=== PATIENT | female | born 1940 | race Caucasian/White ===

== ENCOUNTER → 2016-10-11 | Outpatient (CLI) | payer OTHER ==
[~2016-10-11] MED LIST: ACET-1256 PO; ALBUAER2 INH; AMLO-110 PO; CALC-393 PO; CHOL100010 PO; COEN400C5 PO; CPR500 PO; CYAN100020 PO; FERR325T PO; FLUT1AER5 INH; HYDR-5688 PO; HYDR25TA4 PO; LEVO25TA PO; LORA10CA2 PO; MELA1TAB5 PO; MOME50SP5; MONT1TAB3 PO; MULT-506 PO; OMEG10007 PO; PANT1TAB48 PO; POTA10CA28 PO; REDCAP2 PO; TRAM-10 PO; VALS-57 PO
[2016-10-11 17:29] LABS: BLOOD UREA NITROGEN 15 mg/dl (7-18); CREATININE 0.75 mg/dl (0.60-1.20); GLUCOSE 93 mg/dl (70-99); POTASSIUM 3.9 mmol/L (3.5-5.1); SODIUM 140 mmol/L (136-145)
[2016-10-11 17:30] LABS: ALT/SGPT 21 U/L (12-78); CALCIUM 9.2 mg/dl (8.5-10.1); CARBON DIOXIDE 28 mmol/L (21-32); CHLORIDE 104 mmol/L (98-107); CHOLESTEROL 252 mg/dl (0-200); TRIGLYCERIDES 227 mg/dl (0-150); VERY LOW DENSITY LIPOPROT CALC 45 mg/dl
[2016-10-11 17:40] LABS: ALKALINE PHOSPHATASE 98 U/L (45-117); AST/SGOT 18 U/L (15-37); CHOLESTEROL/HDL RATIO 4.3; HDL CHOLESTEROL 58 mg/dl; LDL CHOLESTEROL CALCULATED 149 mg/dl
[2016-10-12 06:26] LABS: ESTIMATED AVERAGE GLUCOSE 126 mg/dl; HA1C FLAG Normal (Normal)
--- NOTE | 2016-10-16 13:55 | CODING QUERY MEDICAL NECESSITY ---
SUPPORTING DIAGNOSIS NEEDED A supporting diagnosis is required for the test/procedure performed on this patient in order for us to be reimbursed by the patient's insurance. Please provide a supporting diagnosis for the following test/procedure listed below next to the test name along with your signature. *If there is no additional diagnosis for this patient that would support the following test/procedure please document that below next to the test/procedure. Test(s)/Procedure(s) that require a supporting diagnosis: * GLYCATED HEMOGLOBIN DIAGNOSIS: * DOS: 10/11/16 Provider Signature: Date: Thank you Tianna Contreras Health Information Management Once completed, please kindly fax back to [phone] For questions please call [phone]
== END | disposition home or self-care (01) ==
LOC: C.LABBC 13:58
PROVIDERS: ATTEND Family Medicine
DX: I10 Essential (primary) hypertension (principal); E03.9 Hypothyroidism, unspecified; R73.03 Prediabetes; E78.5 Hyperlipidemia, unspecified

== ENCOUNTER → 2017-03-08 | Outpatient (CLI) | payer OTHER ==
[~2017-03-08] MED LIST changes: -HYDR-5688 PO
--- NOTE | 2017-03-08 15:37 | DIAGNOSTIC IMAGING REPORT ---
RIGHT LOWER EXTREMITY VENOUS DOPPLER CLINICAL HISTORY: Right lower extremity pain. Previous knee replacement. COMPARISON STUDY: No previous studies for comparison. TECHNIQUE: Sonography of the deep venous system of the right lower extremity was performed. Compression and augmentation were evaluated. FINDINGS: The right common femoral, superficial femoral and popliteal veins were compressible. Augmentation was normal. Flow was shown within the deep calf vessels. IMPRESSION: No evidence of deep venous thrombus within the right lower extremity. Electronically signed by: Luis Antonio Hudson M.D. 03/08/2017 3:35 PM Dictated Date/Time: 03/08/2017 3:35 PM
== END | disposition home or self-care (01) ==
LOC: C.ULTRBC 15:09
PROVIDERS: ATTEND Physician Assistant
DX: M79.604 Pain in right leg (principal)

== ENCOUNTER → 2017-03-14 | Outpatient (CLI) | payer OTHER ==
[~2017-03-14] MED LIST changes: +CHOL1TAB42 PO; +HYDR12.55 PO; +MOME6000 NAE; +POTA1TAB97 PO; +PSYL48.59 PO; +VNTHFA/IN INH
--- NOTE | 2017-03-14 13:47 | DIAGNOSTIC IMAGING REPORT ---
RIGHT ART DOP DUPLEX LWR EXT UNI HISTORY: 76 years Female acute right leg pain COMPARISON: Duplex venous Doppler of same day TECHNIQUE: Multiple real-time sonographic images of the right lower extremity arterial structures were obtained assessing grayscale appearance, color and spectral flow. Segmental pressures of the lower extremities were also obtained. FINDINGS: The common femoral, profunda femoris, superficial femoral, popliteal, posterior tibial, anterior tibial, peroneal and dorsalis pedis arteries are patent with normal triphasic waveforms. SEGMENTAL BLOOD PRESSURE: RIGHT: Brachial 115, posterior tibial 127 with index of 1.01, dorsalis pedis 111 with index of 0.88 LEFT: Brachial 126, posterior tibial 109 with index of 0.87, dorsalis pedis 108 with index of 0.86 IMPRESSION: 1. Normal triphasic waveforms are seen within the arteries of the right lower extremity from the thigh to the ankle. 2. Mildly decreased ankle-brachial brachial indices as above. The above report was generated using voice recognition software. It may contain grammatical, syntax or spelling errors. Electronically signed by: Artem Dubon M.D. 03/14/2017 1:45 PM Dictated Date/Time: 03/14/2017 1:38 PM
== END | disposition home or self-care (01) ==
LOC: C.ULTR 12:55
PROVIDERS: ATTEND Physician Assistant
DX: M79.604 Pain in right leg (principal)

== ENCOUNTER → 2017-03-21 | Outpatient (CLI) | payer OTHER ==
--- NOTE | 2017-03-21 15:11 | DIAGNOSTIC IMAGING REPORT ---
RIGHT KNEE 3 VIEWS CLINICAL HISTORY: 76 years-old Female presenting with F/U POST RIGHT TKA Right. TECHNIQUE: Bilateral standing views of the knees and crosstable lateral and sunrise views of the right knee were obtained. COMPARISON: 10/01/2015. FINDINGS: Bilateral total knee arthroplasties. Patellar resurfacing of the right patella noted. Knee joints congruent. No joint space loss. No hardware complication. No fracture or malalignment. Small knee joint effusion on the right suspected. Soft tissues otherwise normal. IMPRESSION: Expected appearance of the total knee arthroplasties with right patellar resurfacing. Small knee joint effusion on the right may be present. Electronically signed by: Timothy Horne M.D. 03/21/2017 3:10 PM Dictated Date/Time: 03/21/2017 3:07 PM
--- NOTE | 2017-03-21 16:16 | DIAGNOSTIC IMAGING REPORT ---
PELVIS BILATERAL HIP 2 CLINICAL HISTORY: 76 years-old Female presenting with bilateral hip pain resulting from favoring the right knee status post total knee arthroplasty. TECHNIQUE: Single frontal view of the pelvis and bilateral frog-leg lateral views of the hips were obtained. COMPARISON: None. FINDINGS: Hip joints congruent. No acute fracture or malalignment. No significant degenerative change. Mild degenerative changes of the pubic symphysis. Degenerative changes of the lower lumbar spine. Sacroiliac joints normal. Few pelvic phleboliths noted. Normal bowel gas pattern. IMPRESSION: No acute osseous injury of the hips or pelvis. Electronically signed by: Timothy Horne M.D. 03/21/2017 4:14 PM Dictated Date/Time: 03/21/2017 4:13 PM
== END | disposition home or self-care (01) ==
LOC: C.RDSM 15:42
PROVIDERS: ATTEND Physician Assistant
DX: M79.604 Pain in right leg (principal); Z96.653 Presence of artificial knee joint, bilateral

== ENCOUNTER → 2017-05-23 | Outpatient (CLI) | payer OTHER ==
--- NOTE | 2017-05-23 13:42 | DIAGNOSTIC IMAGING REPORT ---
LUMBAR SPINE MIN 4 VIEWS CLINICAL HISTORY: 76 years-old Female presenting with LOW BACK PAIN/MUSCLE SPASMS. TECHNIQUE: Frontal, bilateral oblique, lateral, and coned in lateral views of lumbar spine were obtained. COMPARISON: None. FINDINGS: Mild dextrocurvature of the lumbar spine. Straightening of normal lumbar lordosis. Vertebral body heights and alignment maintained. Intervertebral disc height loss most severely at L4-5 and to a lesser extent at L5-S1, where there is vacuum disc phenomenon. Endplate sclerosis noted at the superior endplate of L3 as well as at L3-4 and L5-S1. The endplates of L4-5 appear somewhat irregular and eroded, degenerative changes not excluded. Anterior osteophytosis noted in the lower thoracic region. Osseous neural foraminal narrowing suggested at L4-5 and to a greater degree at L5-S1. Positioning of bilateral oblique views is suboptimal limiting assessment. IMPRESSION: Multilevel degenerative changes most severe in the lower lumbar spine with associated osseous neural foraminal narrowing most severe at L5-S1. Disc height loss with possible erosive changes of the endplates of L4-5. This could be degenerative in etiology, although correlate clinically to exclude infectious symptoms. Electronically signed by: Timothy Horne M.D. 05/23/2017 1:41 PM Dictated Date/Time: 05/23/2017 1:38 PM
== END | disposition home or self-care (01) ==
LOC: C.RDSM 13:13
PROVIDERS: ATTEND Physician Assistant
DX: G62.9 Polyneuropathy, unspecified (principal); M54.5 Low back pain; M46.1 Sacroiliitis, not elsewhere classified; M51.36 Other intervertebral disc degeneration, lumbar region; M48.07 Spinal stenosis, lumbosacral region

== ENCOUNTER → 2017-06-04 | Outpatient (CLI) | payer OTHER | END | disposition home or self-care (01) | LOC: C.MAMM 13:53 | PROVIDERS: ATTEND Internal Medicine Rheumatology | DX: M81.0 Age-related osteoporosis without current pathological fracture (principal); E83.50 Unspecified disorder of calcium metabolism; N25.81 Secondary hyperparathyroidism of renal origin; M85.89 Other specified disorders of bone density and structure, multiple sites ==

== ENCOUNTER → 2017-06-21 | Day surgery (SDC) | payer OTHER ==
[2017-06-06 13:38] VITALS: Ht 162.6 cm; Wt 94.5 kg
[~2017-06-21] VITALS: Ht 162.6 cm; Wt 94.5 kg
[~2017-06-21] MED LIST changes: -ALBUAER2 INH; -CHOL100010 PO; -CPR500 PO; -CYAN100020 PO; +FERR1TAB62 PO; -FERR325T PO; -HYDR25TA4 PO; +IOPAMIDOL INJ 61% 15 ML VIAL ONE; +LIDOCAINE HCL 1% MPF 5 ML VIAL ONE; -MOME50SP5; -OMEG10007 PO; -POTA10CA28 PO; +SODIUM CHLORIDE 0.9% INJ 10 ML VIAL ONE
--- NOTE | 2017-06-21 14:52 | History & Physical Bridge - SC ---
H&P Re-Evaluation Bridge Note: I have examined the patient, reviewed the History & Physical and in the interval since the performance of the History & Physical I have noted the following changes of clinical significance: No changes noted
[2017-06-21 15:22] VITALS: BP 135/82; PULSE 78; TEMP 36.8; O2SAT 98
--- NOTE | 2017-06-21 15:28 | Discharge Instructions ---
Discharge Instructions Date of Service Jun 21, 2017. Visit Reason for Visit: Lumbar Radiculopathy Discharge Discharge Diagnosis / Problem: right leg pain Discharge Goals Goal(s): Decrease discomfort, Improve function Medications Stopped Medications Name(s): no NSAIDS, pt states she doesn't take. Activity Recommendations Activity Limitations: resume your previous activity Anesthesia . Post Anesthesia Instructions: If you have had General Anesthesia or IV Sedation: * Do not drive today. * Resume driving when surgeon permits. * Do not make important decisions or sign legal documents today. * Call surgeon for: 1. Temperature elevations greater than 101 degrees F. 2. Uncontrollable pain. 3. Excessive bleeding. 4. Persistent nausea and vomiting. 5. Medication intolerance (nausea, vomiting or rash). * For nausea and vomiting use only clear liquids such as: tea, soda, bouillon until nausea subsides, then gradually increase diet as tolerated. * If you have any concerns or questions, call your surgeon's office. If physician is unavailable and it is an emergency, call 911 or go to the nearest emergency room. . Diet Recommendations Recommended Home Diet: resume previous diet Procedures Procedures Performed: LUMBAR EPIDURAL STEROID INJECTION Pending Studies Studies pending at discharge: no Medical Emergencies . Who to Call and When: Medical Emergencies: If at any time you feel your situation is an emergency, please call 911 immediately. . Non-Emergent Contact Non-Emergency issues call your: Specialist . . "Provider Documentation" section prepared by Anthony Koch. .
--- NOTE | 2017-06-21 16:15 | OPERATIVE REPORT ---
DATE OF OPERATION: 06/21/2017 PREOPERATIVE DIAGNOSIS: Lumbar spinal stenosis with a right L5 radiculopathy. POSTOPERATIVE DIAGNOSIS: Same. PROCEDURE: Right paramedian L5-S1 intralaminar epidural steroid injection under fluoroscopic guidance. INDICATIONS: The patient is a 76-year-old white female who had an EMG study, which showed suspected potential radiculopathy versus focal motor neuropathy. X-rays revealed significant foraminal stenosis. She presents today for an epidural injection to try to provide her with some relief of her ongoing right lower extremity weakness and pain. PHYSICAL EXAMINATION: GENERAL: Pleasant female seated comfortably. MUSCULOSKELETAL: Lumbar paraspinal muscles were palpated. They were nontender. She had no issues with forward flexion or extension. She had normal lower extremity strength. Sensation was decreased throughout the right lower extremity compared to left. Negative seated straight leg raises. CONSENT: Verbal and written consent was obtained from the patient. Risks and benefits were reviewed. Risks include, but are not limited to epidural abscess, epidural hematoma, allergic reaction, and dural puncture. The patient wishes to proceed. DESCRIPTION OF PROCEDURE: The patient was taken back to the special procedures room of the [facility], where she was maintained in a prone position. Backside was cleansed with Betadine x3 and a dry sterile dressing was applied. Fluoroscope was used to identify the L5-S1 intralaminar space, which was quite narrowed. Overlying skin was anesthetized with 4 mL of lidocaine 1% with a 25-gauge 1-1/2 inch needle. A 22-gauge 3-1/2 inch Tuohy needle was then directed down towards the intralaminar space. It was advanced under lateral fluoroscopic guidance. Loss of resistance was noted at a depth of 7 cm. Isovue-300 contrast 0.5 mL was injected in which demonstrated epidural uptake pattern, which was confirmed with both AP and lateral views. She then underwent injection after negative aspiration of 40 mg of Depo-Medrol and 4 mL of preservative free sodium chloride. Injection was well tolerated and reproduced a familiar transient pain down the right proximal buttocks area. DISPOSITION: 1. The patient was taken out into the discharge recovery area, where she will be discharged home once discharge criteria have been met. 2. Follow up in the [facility] office in 2-4 weeks. I attest to the content of the Intraoperative Record and any orders documented therein. Any exception s are noted below.
== END | disposition home or self-care (01) ==
LOC: X.SURG 13:52
PROVIDERS: ATTEND Physical Medicine & Rehabilitation
DX: M48.061 Spinal stenosis, lumbar region without neurogenic claudication (principal); M54.16 Radiculopathy, lumbar region

== ENCOUNTER 2017-08-01 12:31 | Observation (INO) | payer OTHER ==
[~2017-08-01] VITALS: Ht 162.6 cm; Wt 94.7 kg
[~2017-08-01 12:31] MED LIST changes: +GABA-113 PO; -IOPAMIDOL INJ 61% 15 ML VIAL ONE; -LIDOCAINE HCL 1% MPF 5 ML VIAL ONE; -SODIUM CHLORIDE 0.9% INJ 10 ML VIAL ONE
[2017-08-01] MEDS ORDERED: ASPIRIN 81 MG CHEW PO STA (12:48)
[2017-08-01 13:01] LABS: BASO % 1.8 %; BASO ABS # 0.08 K/uL (0-0.2); COMPLETE YES; EOS % 2.5 %; HEMATOCRIT 32.9 % (37-47); IG% 0.5 %; LYMPH % 28.8 %; LYMPH ABS # 1.28 K/uL (1.2-3.4); MEAN CELL VOLUME 90.4 fL (80-100); MEAN CORPUSCULAR HEMOGLOBIN 29.4 pg (25-34); MEAN CORPUSCULAR HGB CONC 32.5 g/dl (32-36); MEAN PLATELET VOLUME 12.7 fL (7.4-10.4); MONO % 6.1 %; NEUT % 60.3 %; PLATELET COUNT 209 K/uL (130-400); RED BLOOD COUNT 3.64 M/uL (4.2-5.4); WHITE BLOOD COUNT 4.44 K/uL (4.8-10.8)
[2017-08-01 13:15] LABS: BLOOD UREA NITROGEN 9 mg/dl (7-18); BUN/CREATININE RATIO 12.9 (10-20); CALCIUM 8.9 mg/dl (8.5-10.1); CARBON DIOXIDE 28 mmol/L (21-32); CHLORIDE 101 mmol/L (98-107); CREATININE 0.67 mg/dl (0.60-1.20); GLUCOSE 99 mg/dl (70-99); POTASSIUM 3.9 mmol/L (3.5-5.1); SODIUM 136 mmol/L (136-145)
--- NOTE | 2017-08-01 13:27 | DIAGNOSTIC IMAGING REPORT ---
CHEST ONE VIEW PORTABLE CLINICAL HISTORY: Atypical chest pain COMPARISON STUDY: No previous studies for comparison. FINDINGS: The heart is borderline enlarged. There is a retrocardiac opacity, likely representing a hiatal hernia. There is no failure. There is no focal pulmonary consolidation. Slight interstitial prominence the lung bases, likely secondary to a suboptimal inspiration.[ IMPRESSION: 1. Suspected hiatal hernia 2. No evidence of focal pulmonary consolidation Electronically signed by: Caleb Vann M.D. 08/01/2017 1:26 PM Dictated Date/Time: 08/01/2017 1:25 PM
[2017-08-01 13:40] LABS: PROTHROMBIN TIME (PATIENT) 10.1 SECONDS (9.0-12.0)
[2017-08-01] MEDS ORDERED: ALUMINUM/MAGNESIUM/SIMETH (MAALOX MAX) 30 ML UDC PO PRN (14:45)
[2017-08-01] MEDS ORDERED: ONDANSETRON INJ 2 MG/ML 2 ML VIAL IV PRN (14:45)
[2017-08-01] MEDS ORDERED: MAGNESIUM HYDROXIDE SUSP 30 ML UDC PO PRN (14:45)
[2017-08-01] MEDS ORDERED: POLYETHYLENE (MIRALAX) 17 GM PACK PO PRN (14:45)
[2017-08-01] MEDS ORDERED: FLAX1CAP11 PO (15:08)
[2017-08-01] MEDS ORDERED: CYAN100020 PO (15:08)
[2017-08-01] MEDS ORDERED: ALBUTEROL HFA 8 GM INHALER INH PRN (15:15)
--- NOTE | 2017-08-01 15:20 | History and Physical ---
History & Physical Date & Time of Service: Aug 01, 2017 at 14:57 Chief Complaint: Chest Discomfort Primary Care Physician: Cheryl Brasher M.D. History of Present Illness Source: patient, clinic records, hospital records This is a 76 y/o female with a history of HTN, HLD, PAD, hypothyroidism, mild intermittent asthma, schizoaffective disorder, and GERD who presented to the ED on 08/01 with chest pain. The patient states she has had chronic back pain for the last several months, but in the last few days it has started to radiate to her chest. She describes a chest tightness as well as a pressure-like pain that she is unable to quantify. The patient states that the tightness sometimes radiates up to her neck and down both arms to her fingers. She also complains of dyspnea on exertion which has been getting worse over the last week , causing her to feel generally weak and fatigued. She admits to intermittent nausea and worsening dizziness, especially with activity. She sometimes has palpitations, but she saw Dr. Pop in April and wore a 24 hour event monitor which did not show any significant arrhythmias. The patient denies fevers, chills, sweats, claudication, cough, wheezing, vomiting, abdominal pain , dysuria, hematuria, urinary retention, paralysis, weakness, numbness and tingling. Past Medical/Surgical History HTN HLD PAD Hypothyroidism Asthma Schizoaffective disorder w/history of psychiatric hospitalization GERD Family History Cancer (colon and stomach) Diabetes mellitus Hypertension Myocardial infarction Stroke Social History Smoking Status: Never Smoker Smokeless Tobacco Use: No Alcohol Use: none Drug Use: none Marital Status: single Housing status: lives alone Occupational Status: retired Multi-Drug Resistant Organisms History of MDRO: No Allergies Coded Allergies: Aspirin (Verified Allergy, Severe, ITCHY NOSE, LABORED BREATHING, IRRITATES STOMACH, 07/27/17) Codeine (Verified Allergy, Severe, SEVERE SHORTNESS OF BREATH,RASH, ) Diclofenac (Verified Allergy, Severe, SHORTNESS OF BREATH, 07/27/17) Fish Allergy (Verified Allergy, Severe, EARS DRAIN, SOB, 07/27/17) Isopropyl Alcohol (Verified Allergy, Severe, SHORTNESS OF BREATH, 07/27/17) Latex2 -Systemic Allergic Response (Verified Allergy, Severe, SOB,FACE BURNING, 07/27/17) Molds & Smuts (Verified Allergy, Severe, MOLDS GRASS-DIFFICULTY BREATHING , NASAL CONGESTION, 06/06/17) NSAIDs (Verified Allergy, Severe, ITCHY NOSE, LABORED BREATHING, IRRITATES STOMAS, 07/27/17) Phenobarbital (Verified Allergy, Severe, SHORTNESS OF BREATH,HEART FELT HOT AND COLD, 07/27/17) Propylene Glycol (Verified Allergy, Severe, SHORTNESS OF BREATH, 07/27/17) Penicillins (Verified Allergy, Intermediate, RASH, 07/27/17) Pineapple (Verified Allergy, Intermediate, LIPS AND FACE RED, LIPS SWELL, 07/27/17) Adhesives (Verified Allergy, Unknown, dias skin, 07/27/17) GLUE Aromatic Oils (Verified Allergy, Unknown, PERFUMES/SMOKE-HEADACHE, BREATHING ISSUES, 07/27/17) SMOKE-HEADACHE,BREATHING ISSUES Chocolate (Verified Allergy, Unknown, SMALL AMTS OK-EARS DRAIN WITH LARGE AMTS, 07/27/17) Tramadol (Verified Allergy, Unknown, cough/wheezing, 07/27/17) Statins (Verified Adverse Reaction, Intermediate, PAIN, MUSCLE ACHES, RASH , 07/27/17) Uncoded Allergies: METAL (Allergy, Unknown, TYPE OF METAL UNKNOWN-PAIN AT SITE,ITCHINESS PER PT, 09/03/15) PER PT-WAS TESTED BY DR FOR METAL ALLERGY-OK FOR TITANIUM BUT NOT SOME OTHER METALS-NICKEL METAL ON WATCH BAND,NECKLACE MADE SKIN IRRITATED PER PT- Home Medications Scheduled Amlodipine (Norvasc), 5 MG PO QAM Calcium Carbonate (Calcium), 1,250 MG PO DAILY Cholecalciferol (Vitamin D), 5,000 UNITS PO QPM Coenzyme Q10 (Ubidecarenone) (Coq10), 400 MG PO QPM Cyanocobalamin (Vitamin B12), 2,000 UNITS PO DAILY Ferrous Sulfate (Ferrous Sulfate), 325 MG PO BID Flaxseed (Linseed) (Flax Seed Oil), 1 CAP PO Q2D Hydrochlorothiazide (Hydrochlorothiazide), 12.5 MG PO DAILY Levothyroxine Sodium (Synthroid), 25 MCG PO QAM Montelukast Sodium (Singulair), 10 MG PO QPM Multivitamin (Multivitamin), 1 TAB PO QPM Pantoprazole (Protonix), 40 MG PO BID Potassium Chloride (K-Tab), 20 MEQ PO BID Psyllium (Metamucil), 1 DOSE PO QPM Red Yeast Rice Extract (Red Yeast Rice), 600 MG PO QPM Valsartan (Valsartan), 80 MG PO QAM Scheduled PRN Acetaminophen (Tylenol), 500 MG PO Q8H PRN for RN Albuterol Hfa (Ventolin Hfa), 2-4 PUFFS INH Q6H PRN for SOB/Wheezing Fluticasone Propionate (Inhala (Flovent Diskus), 1 PUFFS INH BID PRN for Shortness of Breath Melatonin (Kp Melatonin), 1-2 TAB PO HS PRN for Sleep Mometasone Furoate (Nasal) (Mometasone Furoate), 2 SPRAYS JOSSE DAILY PRN for CONGESTION Review of Systems Constitutional: No fever, No chills, No sweats Eyes: No worsening of vision, No eye pain, No diplopia ENT: No hearing loss, No nasal symptoms, No trouble swallowing Respiratory: +GONZALEZ. No cough, No wheezing Cardiovascular: +Chest pain, palpitations. No claudication Abdomen: +Nausea. No pain, No vomiting Musculoskeletal: +Back pain. No muscle pain, No swelling Genitourinary - Female: No dysuria, No urinary retention, No hematuria Neurologic: No paralysis, No weakness, No numbness/tingling Integumentary: No rash, No itch, No color change Physical Exam Vital Signs Date Time Temp Pulse Resp B/P (MAP) Pulse Ox O2 Delivery O2 Flow Rate FiO2 08/01/17 12:41 84 08/01/17 12:36 36.7 77 20 125/79 96 Room Air 08/01/17 12:36 95 Room Air General appearance: +Obese. Well-developed, well-nourished, no apparent distress Head: Normocephalic, atraumatic Eyes: Normal inspection, PERRL, EOMI ENT: Normal ENT inspection, hearing grossly normal, pharynx normal Neck: Supple, no JVD, trachea midline Respiratory/Chest: Lungs clear to auscultation, normal breath sounds, no respiratory distress Cardiovascular: Regular rate & rhythm, no gallop, no murmur Abdomen/GI: +Epigastrium mildly TTP. Normal bowel sounds, soft Extremities/Musculoskeletal: Normal inspection, no calf tenderness, no pedal edema Neurological/Psych: +Delusions. Pt states she just found out this summer that she was in fact at one time, but didn't know before hand due to her previous psych hospitalizations and resultant medications doping her up. She claims she was at one point to [facility]. Otherwise currently has normal mood and oriented x3. Alert, normal mood/affect, oriented x 3 Skin: Normal color, warm/dry, no rash Diagnostics Laboratory Results Results Past 24 Hours Test 08/01/17 12:05 08/01/17 14:42 Range/Units White Blood Count 4.44 4.8-10.8 K/uL Red Blood Count 3.64 4.2-5.4 M/uL Hemoglobin 10.7 12.0-16.0 g/dL Hematocrit 32.9 37-47 % Mean Corpuscular Volume 90.4 80-100 fL Mean Corpuscular Hemoglobin 29.4 25-34 pg Mean Corpuscular Hemoglobin Concent 32.5 32-36 g/dl Platelet Count 209 130-400 K/uL Mean Platelet Volume 12.7 7.4-10.4 fL Neutrophils (%) (Auto) 60.3 % Lymphocytes (%) (Auto) 28.8 % Monocytes (%) (Auto) 6.1 % Eosinophils (%) (Auto) 2.5 % Basophils (%) (Auto) 1.8 % Neutrophils # (Auto) 2.68 1.4-6.5 K/uL Lymphocytes # (Auto) 1.28 1.2-3.4 K/uL Monocytes # (Auto) 0.27 0.11-0.59 K/uL Eosinophils # (Auto) 0.11 0-0.5 K/uL Basophils # (Auto) 0.08 0-0.2 K/uL RDW Standard Deviation 45.2 36.4-46.3 fL RDW Coefficient of Variation 13.6 11.5-14.5 % Immature Granulocyte % (Auto) 0.5 % Immature Granulocyte # (Auto) 0.02 0.00-0.02 K/uL Prothrombin Time 10.1 9.0-12.0 SECONDS Prothromb Time International Ratio 1.0 0.9-1.1 D-Dimer 410 0-500 ug/L FEU Sodium Level 136 136-145 mmol/L Potassium Level 3.9 3.5-5.1 mmol/L Chloride Level 101 98-107 mmol/L Carbon Dioxide Level 28 21-32 mmol/L Anion Gap 6.0 3-11 mmol/L Blood Urea Nitrogen 9 7-18 mg/dl Creatinine 0.67 0.60-1.20 mg/dl Est Creatinine Clear Calc Drug Dose 82.4 ml/min Estimated GFR () 100.4 Estimated GFR (Non- 86.6 BUN/Creatinine Ratio 12.9 10-20 Random Glucose 99 70-99 mg/dl Calcium Level 8.9 8.5-10.1 mg/dl Total Creatine Kinase 29 26-192 U/L Creatine Kinase MB < 0.5 0.5-3.6 ng/ml Creatine Kinase MB Ratio 0-3.0 Troponin I < 0.015 0-0.045 ng/ml Diagnostic Radiology Reviewed the following studies and agree with interpretation as follows: CHEST ONE VIEW PORTABLE CLINICAL HISTORY: Atypical chest pain COMPARISON STUDY: No previous studies for comparison. FINDINGS: The heart is borderline enlarged. There is a retrocardiac opacity, likely representing a hiatal hernia. There is no failure. There is no focal pulmonary consolidation. Slight interstitial prominence the lung bases, likely secondary to a suboptimal inspiration.[ IMPRESSION: 1. Suspected hiatal hernia 2. No evidence of focal pulmonary consolidation EKG Reviewed EKG and agree with interpretation as follows: 74 bpm, NSR with sinus arrhythmia Impression Assessment and Plan 76 y/o female with a history of HTN, HLD, PAD, hypothyroidism, mild intermittent asthma, schizoaffective disorder, and GERD who presented to the ED on 08/01 with chest pain. Pt had took ASA at home prior to EMS arrival. EMS gave nitro x 3 doses. Pt arrived to ED afebrile, VSS. CXR shows suspected hiatal hernia, otherwise no acute disease. EKG no ischemic changes. Cardiac enzymes and d-dimer negative, labs otherwise grossly unremarkable. Chest pain, ACS r/o -Admit to telemetry for observation -Trend cardiac enzymes q8h x 3. First set negative. -Stress echo in am if remains negative -EKG q am and prn chest pain -Fasting lipid panel, last panel 10/13 -Recheck HgbA1c in am, pt has h/o prediabetes HTN, HLD--stable -Continue Norvasc 5 mg PO qd, HCTZ 12.5 mg PO qd and valsartan 80 mg PO qd Hypothyroidism -Check TSH -Continue Synthroid 25 mcg PO qd Mild intermittent asthma--pt does not take any scheduled medications for this, only prn -Continue prn albuterol inhaler, can hold prn Singulair, Claritin, Nasonex and Flovent for now Schizoaffective disorder--no current mood disturbances, but pt reported to me that she just recently found out she had been to [facility] -Consult psych regarding delusions, appreciate recs GERD -Continue Protonix 40 mg PO BID DVT prophylaxis -Enoxaparin 40 mg SC q24h -SAMMI Barraza Code Status -Level I, FULL RESUSCITATION STATUS Level of Care Telemetry Resuscitation Status FULL RESUSCITATION VTE Prophylaxis VTE Risk Assessment Done? Y/N: Yes Risk Level: Moderate Given or contraindicated: Enoxaparin (Lovenox)SQ, T.E.D. Stockings, SCD's
[2017-08-01] MEDS ORDERED: IV FLUIDS COMPLETED PRN (16:15)
[2017-08-01 16:39] VITALS: BP 137/75; PULSE 71; TEMP 36.4; O2SAT 96
--- NOTE | 2017-08-01 17:19 | EMERGENCY ROOM VISIT NOTE ---
History Report prepared by Fabiola: Amando Phillip Under the Supervision of: Dr. Amanuel Roman D.O. First contact with patient: 12:48 Chief Complaint: CHEST PAIN Stated Complaint: CHEST DISCOMFORT Nursing Triage Summary: Pt arrived via ambulance ALS. Pt is a 76yr old female who is from home. Pt states that she started to have chest discomfort yesterday. Pt states the pain originally started in her back and then radiated to her chest. Pt has been having back pain since April. Pt states the chest pain is just a discomfort. Today the PT was becoming SOB with exertion. He chest pain began to radiate to her neck bilat and jaw bilat. Pt then called 911. Pt also took 324 of aspirin before EMS arrived. When EMS arrived the pt was sitting in a chair in her living room. Pt appeared to be in no distress. Pt stated that she was having chest discomfort and pain radiating to her neck and jaw bilat. Pts vitals were stable. Pt was given 3 nitro sublingual which relieved her chest pain. History of Present Illness The patient is a 76 year old female who presents to the Emergency Room with complaints of constant chest pain starting yesterday. The patient states that she has chronic back pain, and she states that the pain has started going into her chest. She notes that the pain resolved with the nitro given prior to arrival. The patient states that the pain feels like a tightness and it is going into her jaw and down both arms. She additionally notes that she is short of breath on exertion and from the pain. The patient states that the pain is not worse with exertion or twisting. The patient has a history of high cholesterol, high blood pressure, and a slow thyroid. She denies any history of heart attacks. Pt denies headache, change in vision, fevers, cough, runny nose, nausea, vomiting, diarrhea, pain with urination, and melena. Source of History: patient Onset: yesterday Position: chest Quality: other (tightness) Timing: constant Modifying Factors (Relieving): other (nitro) Associated Symptoms: + SOB, + back pain Note: Associated symptoms: jaw and arm pain Review of Systems See HPI for pertinent positives & negatives. A total of 10 systems reviewed and were otherwise negative. Past Medical & Surgical Medical Problems: (1) Chest pain (2) Right Knee DJD Social History Smoking Status: Former Smoker Marital Status: single Occupation Status: retired Current/Historical Medications Scheduled Amlodipine (Norvasc), 5 MG PO QAM Calcium Carbonate (Calcium), 1,250 MG PO DAILY Cholecalciferol (Vitamin D), 5,000 UNITS PO QPM Coenzyme Q10 (Ubidecarenone) (Coq10), 400 MG PO QPM Cyanocobalamin (Vitamin B12), 2,000 UNITS PO DAILY Ferrous Sulfate (Ferrous Sulfate), 325 MG PO BID Flaxseed (Linseed) (Flax Seed Oil), 1 CAP PO Q2D Hydrochlorothiazide (Hydrochlorothiazide), 12.5 MG PO DAILY Levothyroxine Sodium (Synthroid), 25 MCG PO QAM Montelukast Sodium (Singulair), 10 MG PO QPM Multivitamin (Multivitamin), 1 TAB PO QPM Pantoprazole (Protonix), 40 MG PO BID Potassium Chloride (K-Tab), 20 MEQ PO BID Psyllium (Metamucil), 1 DOSE PO QPM Red Yeast Rice Extract (Red Yeast Rice), 600 MG PO QPM Valsartan (Valsartan), 80 MG PO QAM Scheduled PRN Acetaminophen (Tylenol), 500 MG PO Q8H PRN for RN Albuterol Hfa (Ventolin Hfa), 2-4 PUFFS INH Q6H PRN for SOB/Wheezing Fluticasone Propionate (Inhala (Flovent Diskus), 1 PUFFS INH BID PRN for Shortness of Breath Melatonin (Kp Melatonin), 1-2 TAB PO HS PRN for Sleep Mometasone Furoate (Nasal) (Mometasone Furoate), 2 SPRAYS JOSSE DAILY PRN for CONGESTION Allergies Coded Allergies: Aspirin (Verified Allergy, Severe, ITCHY NOSE, LABORED BREATHING, IRRITATES STOMACH, 07/27/17) Codeine (Verified Allergy, Severe, SEVERE SHORTNESS OF BREATH,RASH, ) Diclofenac (Verified Allergy, Severe, SHORTNESS OF BREATH, 07/27/17) Fish Allergy (Verified Allergy, Severe, EARS DRAIN, SOB, 07/27/17) Isopropyl Alcohol (Verified Allergy, Severe, SHORTNESS OF BREATH, 07/27/17) Latex2 -Systemic Allergic Response (Verified Allergy, Severe, SOB,FACE BURNING, 07/27/17) Molds & Smuts (Verified Allergy, Severe, MOLDS GRASS-DIFFICULTY BREATHING , NASAL CONGESTION, 06/06/17) NSAIDs (Verified Allergy, Severe, ITCHY NOSE, LABORED BREATHING, IRRITATES STOMAS, 08/01/17) Phenobarbital (Verified Allergy, Severe, SHORTNESS OF BREATH,HEART FELT HOT AND COLD, 08/01/17) Propylene Glycol (Verified Allergy, Severe, SHORTNESS OF BREATH, 08/01/17) Penicillins (Verified Allergy, Intermediate, RASH, 08/01/17) Pineapple (Verified Allergy, Intermediate, LIPS AND FACE RED, LIPS SWELL, 07/27/17) Adhesives (Verified Allergy, Unknown, dias skin, 07/27/17) GLUE Aromatic Oils (Verified Allergy, Unknown, PERFUMES/SMOKE-HEADACHE, BREATHING ISSUES, 07/27/17) SMOKE-HEADACHE,BREATHING ISSUES Chocolate (Verified Allergy, Unknown, SMALL AMTS OK-EARS DRAIN WITH LARGE AMTS, 07/27/17) Tramadol (Verified Allergy, Unknown, cough/wheezing, 07/27/17) Statins (Verified Adverse Reaction, Intermediate, PAIN, MUSCLE ACHES, RASH , 08/01/17) Uncoded Allergies: METAL (Allergy, Unknown, TYPE OF METAL UNKNOWN-PAIN AT SITE,ITCHINESS PER PT, 09/03/15) PER PT-WAS TESTED BY FOR METAL ALLERGY-OK FOR TITANIUM BUT NOT SOME OTHER METALS-NICKEL METAL ON WATCH BAND,NECKLACE MADE SKIN IRRITATED PER PT- Physical Exam Vital Signs Date Time Temp Pulse Resp B/P (MAP) Pulse Ox O2 Delivery O2 Flow Rate FiO2 08/01/17 12:41 84 08/01/17 12:36 36.7 77 20 125/79 96 Room Air 08/01/17 12:36 95 Room Air Physical Exam GENERAL: Sitting up in bed, obese, no distress, non-toxic EYE EXAM: normal conjunctiva. OROPHARYNX: no exudate, no erythema, lips, buccal mucosa, and tongue normal and mucous membranes are moist NECK: supple, no nuchal rigidity, no adenopathy, non-tender LUNGS: Clear to auscultation. Normal chest wall mechanics HEART: no murmurs, S1 normal and S2 normal ABDOMEN: abdomen soft, non-tender, normo-active bowel sounds, no masses, no rebound or guarding. BACK: Back is symmetrical on inspection and there is no deformity, no midline tenderness, no CVA tenderness. SKIN: no rashes and no bruising UPPER EXTREMITIES: Radial pulses are equal bilaterally. Upper extremities are grossly normal. LOWER EXTREMITIES: No pitting edema. Calves are equal bilaterally. NEURO EXAM: Normal sensorium, cranial nerves II-XII grossly intact, normal speech, no gross weakness of arms, no gross weakness of legs. Gross sensation intact. Medical Decision & Procedures ER Provider Diagnostic Interpretation: Radiology results as stated below per my review and the radiologist's interpretation: CHEST ONE VIEW PORTABLE CLINICAL HISTORY: Atypical chest pain COMPARISON STUDY: No previous studies for comparison. FINDINGS: The heart is borderline enlarged. There is a retrocardiac opacity, likely representing a hiatal hernia. There is no failure. There is no focal pulmonary consolidation. Slight interstitial prominence the lung bases, likely secondary to a suboptimal inspiration.[ IMPRESSION: 1. Suspected hiatal hernia 2. No evidence of focal pulmonary consolidation Electronically signed by: Caleb Vann M.D. 08/01/2017 1:26 PM Dictated Date/Time: 08/01/2017 1:25 PM Laboratory Results 08/01/17 12:05 Red Blood Count 3.64, Mean Corpuscular Volume 90.4, Mean Corpuscular Hemoglobin 29.4, Mean Corpuscular Hemoglobin Concent 32.5, Mean Platelet Volume 12.7, Neutrophils (%) (Auto) 60.3, Lymphocytes (%) (Auto) 28.8, Monocytes (%) (Auto) 6.1, Eosinophils (%) (Auto) 2.5, Basophils (%) (Auto) 1.8, Neutrophils # (Auto) 2.68, Lymphocytes # (Auto) 1.28, Monocytes # (Auto) 0.27, Eosinophils # (Auto) 0.11, Basophils # (Auto) 0.08 08/01/17 12:05 Test 08/01/17 12:05 White Blood Count 4.44 K/uL (4.8-10.8) Red Blood Count 3.64 M/uL (4.2-5.4) Hemoglobin 10.7 g/dL (12.0-16.0) Hematocrit 32.9 % (37-47) Mean Corpuscular Volume 90.4 fL (80-100) Mean Corpuscular Hemoglobin 29.4 pg (25-34) Mean Corpuscular Hemoglobin Concent 32.5 g/dl (32-36) Platelet Count 209 K/uL (130-400) Mean Platelet Volume 12.7 fL (7.4-10.4) Neutrophils (%) (Auto) 60.3 % Lymphocytes (%) (Auto) 28.8 % Monocytes (%) (Auto) 6.1 % Eosinophils (%) (Auto) 2.5 % Basophils (%) (Auto) 1.8 % Neutrophils # (Auto) 2.68 K/uL (1.4-6.5) Lymphocytes # (Auto) 1.28 K/uL (1.2-3.4) Monocytes # (Auto) 0.27 K/uL (0.11-0.59) Eosinophils # (Auto) 0.11 K/uL (0-0.5) Basophils # (Auto) 0.08 K/uL (0-0.2) RDW Standard Deviation 45.2 fL (36.4-46.3) RDW Coefficient of Variation 13.6 % (11.5-14.5) Immature Granulocyte % (Auto) 0.5 % Immature Granulocyte # (Auto) 0.02 K/uL (0.00-0.02) Prothrombin Time 10.1 SECONDS (9.0-12.0) Prothromb Time International Ratio 1.0 (0.9-1.1) D-Dimer 410 ug/L FEU (0-500) Anion Gap 6.0 mmol/L (3-11) Est Creatinine Clear Calc Drug Dose 82.4 ml/min Estimated GFR () 100.4 Estimated GFR (Non- 86.6 BUN/Creatinine Ratio 12.9 (10-20) Calcium Level 8.9 mg/dl (8.5-10.1) Total Creatine Kinase 29 U/L (26-192) Creatine Kinase MB < 0.5 ng/ml (0.5-3.6) Creatine Kinase MB Ratio (0-3.0) Troponin I < 0.015 ng/ml (0-0.045) Thyroid Stimulating Hormone (TSH) 1.800 uIu/ml (0.300-4.500) Laboratory results per my review. Medications Administered Medications (Trade) Dose Ordered Sig/Ignacia Route Start Time Stop Time Status Last Admin Dose Admin Aspirin (Aspirin Chew) 324 mg NOW STAT PO 08/01/17 12:48 08/01/17 12:50 DC 08/01/17 13:13 324 MG ECG Indication: chest pain Rate (beats per minute): 74 Rhythm: sinus rhythm Findings: other (Normal axis. Sinus arrhythmia) ED Course ED COURSE: Vital signs were reviewed and showed normal vitals The patients medical record was reviewed The above diagnostic studies were performed and reviewed. ED treatments and interventions as stated above. 1248: The patient was evaluated in room B6. A complete history and physical examination was performed. I ordered Aspirin 324mg PO 1405: I reviewed the patient's case with Dr. Cervantes. He will evaluate the patient for further management. 1408: Upon reevaluation, the patient is doing well.I discussed my findings with the patient and she understands and agrees with the treatment plan. Based on the patients age, coexisting illnesses, exam and lab findings the decision to treat as an inpatient was made. The patient remained stable while under my care. The patient will be evaluated for further management. 1426: I rechecked the patient, and the hospitalist was evaluating her. Medical Decision Differential diagnoses includes but is not limited to acute coronary syndrome, myocardial infarction, pericarditis, pulmonary embolus, aortic dissection, pneumonia, pneumothorax, musculoskeletal, shingles, esophageal. Patient is a 76-year-old female who presents to ER for chest pain associated with shortness of breath arm and jaw pain. Pain was completely resolved with nitroglycerin. CBC shows a mild anemia. BMP was unremarkable. Troponin was negative. TSH was normal. D-dimer was negative. Chest x-ray shows a normal mediastinum. No infiltrate. Patient was completely chest pain-free and was admits internal medicine for exertional chest pain and shortness of breath associated with arm and jaw pain. She did also complain of back pain this does appear to be her typical chronic back pain. Medication Reconcilliation Current Medication List: was personally reviewed by me Blood Pressure Screening Patient's blood pressure: Normal blood pressure Consults Time Called: 1343 Consulting Physician: Dr. Cervantes Returned Call: 1400 I reviewed the patient's case with Dr. Cervantes. He will evaluate the patient for further management. Impression Primary Impression: Precordial chest pain Additional Impression: Dyspnea on exertion Scribe Attestation The scribe's documentation has been prepared under my direction and personally reviewed by me in its entirety. I confirm that the note above accurately reflects all work, treatment, procedures, and medical decision making performed by me. Departure Information Dispostion Being Evaluated By Hospitalist Referrals Cheryl Brasher M.D. (PCP) Patient Instructions My [facility] Problem Qualifiers
[2017-08-01 18:44] VITALS: BP 137/75; PULSE 71; TEMP 36.4; O2SAT 96; Ht 162.6 cm; Wt 94.7 kg
[2017-08-01 19:56] VITALS: BP 119/72; PULSE 92; TEMP 36.4; O2SAT 93
[2017-08-01 20:08] VITALS: O2SAT 93
[2017-08-01] MEDS: ACETAMINOPHEN 325 MG TAB PO PRN (20:08)
[2017-08-01] MEDS: POTASSIUM CHLORIDE 20 MEQ TABCR PO SCH (20:09)
[2017-08-01] MEDS: ENOXAPARIN 40 MG/0.4 ML SYR SC SCH (20:09)
[2017-08-01] MEDS: PANTOprazole SOD 40 MG TAB PO SCH (20:10)
[2017-08-01] MEDS ORDERED: MULTIVITAMIN TAB PO SCH (21:00)
[2017-08-01 23:52] VITALS: BP 128/76; PULSE 76; TEMP 36.4; O2SAT 95
[2017-08-02] VITALS (7 sets, daily range): BP systolic 126–147; BP diastolic 75–85; PULSE 72–85; TEMP 36.4–36.5; O2SAT 92–96
[2017-08-02] MEDS: ACETAMINOPHEN 325 MG TAB PO PRN ×2 (01:25→05:53)
[2017-08-02 04:28] LABS: HEMATOCRIT 30.8 % (37-47); MEAN CELL VOLUME 89.3 fL (80-100); MEAN CORPUSCULAR HGB CONC 32.5 g/dl (32-36); MEAN PLATELET VOLUME 12.5 fL (7.4-10.4); PLATELET COUNT 188 K/uL (130-400); RED BLOOD COUNT 3.45 M/uL (4.2-5.4); WHITE BLOOD COUNT 4.36 K/uL (4.8-10.8)
[2017-08-02 04:52] LABS: BLOOD UREA NITROGEN 13 mg/dl (7-18); CALCIUM 8.2 mg/dl (8.5-10.1); CARBON DIOXIDE 31 mmol/L (21-32); CHLORIDE 104 mmol/L (98-107); CHOLESTEROL 204 mg/dl (0-200); CHOLESTEROL/HDL RATIO 5.4; CKMB/CK RATIO 1.9 (0-3.0); CREATININE 0.64 mg/dl (0.60-1.20); GLUCOSE 103 mg/dl (70-99); HDL CHOLESTEROL 38 mg/dl; LDL CHOLESTEROL CALCULATED 92 mg/dl; POTASSIUM 3.4 mmol/L (3.5-5.1); SODIUM 138 mmol/L (136-145); TRIGLYCERIDES 368 mg/dl (0-150); VERY LOW DENSITY LIPOPROT CALC 74 mg/dl
[2017-08-02] MEDS ORDERED: LEVOTHYROXINE 25 MCG TAB PO SCH (06:30)
[2017-08-02 06:40] LABS: ESTIMATED AVERAGE GLUCOSE 123 mg/dl; HA1C FLAG Normal (Normal)
[2017-08-02] MEDS ORDERED: AMLODIPINE BESYLATE 5 MG TAB PO SCH (09:00)
[2017-08-02] MEDS ORDERED: VALSARTAN 80 MG TAB PO SCH (09:00)
[2017-08-02] MEDS ORDERED: HYDROCHLOROTHIAZIDE 25 MG TAB PO SCH (09:00)
[2017-08-02] MEDS ORDERED: POTASSIUM CHLORIDE 20 MEQ TABCR PO ONE (09:15)
[2017-08-02] MEDS ORDERED: DOBUTamine HCL 12.5 MG/ML 20 ML VIAL ONE (09:15)
[2017-08-02] MEDS ORDERED: METOPROLOL TARTRATE 1 MG/ML VIAL ONE (09:16)
[2017-08-02] MEDS ORDERED: ATROPINE SULFATE 0.1 MG/ML 5ML SYR ONE (09:16)
[2017-08-02] MEDS ORDERED: PERFLUTREN LIPID MICROSPHERE (DEFINITY) IV ONE (09:49)
[2017-08-02] MEDS: PANTOprazole SOD 40 MG TAB PO SCH (10:12)
[2017-08-02] MEDS: POTASSIUM CHLORIDE 20 MEQ TABCR PO SCH (10:12)
[2017-08-02] MEDS ORDERED: CYCLOBENZAPRINE HCL 5 MG TAB PO PRN (11:45)
[2017-08-02] MEDS ORDERED: CYCLOBENZAPRINE HCL 5 MG TAB PO ONE (12:00)
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
[2017-08-02] MEDS ORDERED: RISPERIDONE ODT 0.5MG PO PRN (12:45)
[2017-08-02] MEDS ORDERED: FLX5 PO (13:41)
--- NOTE | 2017-08-02 13:49 | Discharge Instructions ---
Discharge Instructions Date of Service Aug 02, 2017. Admission Reason for Admission: Chest Pain Discharge Discharge Diagnosis / Problem: Musculoskeletal back pain Discharge Goals Goal(s): Decrease discomfort, Improve function, Increase independence, Learn about illness, Diagnostic testing, Therapeutic intervention, Prevent Disease Progression Activity Recommendations Activity Limitations: as noted below Lifting Limitations: gradually increase as tolerated Exercise/Sports Limitations: as tolerated May Resume Sexual Activity: when tolerated Shower/Bathe: no limitations . Instructions / Follow-Up Instructions / Follow-Up An acute cardiac event was ruled out through cardiac monitoring, cardiac enzymes , and stress echocardiogram test. The source of your back pain is likely musculoskeletal. Back pain: Flexeril 5 mg three times daily as needed for muscle pain/spasm You may apply heat or ice (whichever feels best) three to four times a day for no more than 15-20 minutes at a time You may apply [id number] topical pain-relieving cream (such as IcyHot) as needed Drink plenty of fluids Continue to stretch/move throughout the day as tolerated Resume all other regular home medications as prescribed FOLLOW-UPS: Please follow-up with your PCP within 5-7 days Please follow-up with Dr. Koch within the next 1-2 weeks Please follow-up/keep all of your subspecialty appointments Home Care: * If you are having chest pain, call 911 for an ambulance. Do NOT drive yourself to the hospital. * Ask your family members to learn CPR. * Learn to take your own blood pressure and pulse. Keep a record of your results. Ask your doctor when you should seek emergency medical attention. He or she will tell you which blood pressure reading is dangerous. Lifestyle Changes: * Maintain a healthy weight. Get help to lose any extra pounds. * Cut back on salt. * Limit canned, dried, packaged, and fast foods. * Don't add salt to your food. * Season foods with herbs instead of salt when you cook. * Break the smoking habit. Enroll in a stop-smoking program to improve your chances of success. * Limit fatty foods. * Ask your doctor about having your lipid levels checked regularly. * Build up your activity according to your doctor's recommendation. * Ask your doctor when it's okay to resume sexual activity. * Try to manage stress. Follow Up: It is important for you to keep your follow up appointments with your medical provider. Current Hospital Diet Patient's current hospital diet: AHA Diet (Heart Healthy) Discharge Diet Recommended Diet: AHA Diet (Heart Healthy) Pending Studies Studies pending at discharge: no Laboratory Results Hemoglobin A1c Test 08/02/17 04:08 Range/Units Estimated Average Glucose 123 mg/dl Hemoglobin A1c 5.9 H 4.5-5.6 % Lipid Panel Test 08/02/17 04:08 Range/Units Triglycerides Level 368 H 0-150 mg/dl Cholesterol Level 204 H 0-200 mg/dl HDL Cholesterol 38 mg/dl Cholesterol/HDL Ratio 5.4 LDL Cholesterol, Calculated 92 mg/dl Medical Emergencies . Who to Call and When: Medical Emergencies: If at any time you feel your situation is an emergency, please call 911 immediately. Call 911 immediately or go to your nearest Emergency Room if you experience any of the following: Warning Signs and Symptoms of a Heart Attack * Chest pain that is not relieved by medication * Shortness of breath . Non-Emergent Contact Non-Emergency issues call your: Primary Care Provider Call Non-Emergent contact if: your pain is not controlled, your pain is worsening, your pain is unusual for you, your pain is concerning you, you have any medication questions . . "Provider Documentation" section prepared by Laurie Sy. . AMI Core Measures Reason no ASA as I/P: Treatment not indicated Reason no ASA at D/C: Treatment not indicated Reason no statin as I/P: Treatment not tolerated Reason no statin at D/C: Treatment not tolerated VTE Core Measure Inpt VTE Proph given/why not?: Enoxaparin (Lovenox)SQ, T.E.D. Stockings, SCD's
--- NOTE | 2017-08-02 14:03 | Discharge Summary ---
Discharge Summary Date of Service Aug 02, 2017. Discharge Summary Admission Date: Aug 01, 2017 at 14:54 Discharge Date: Aug 02, 2017 Discharge Disposition: Home Principal Diagnosis: Chest pain, likely secondary to musculoskeletal Problems/Secondary Diagnoses: HLD HTN Hypothyroidism Mild intermittent asthma Schizoaffective disorder GERD Procedures: CHEST ONE VIEW PORTABLE CLINICAL HISTORY: Atypical chest pain COMPARISON STUDY: No previous studies for comparison. FINDINGS: The heart is borderline enlarged. There is a retrocardiac opacity, likely representing a hiatal hernia. There is no failure. There is no focal pulmonary consolidation. Slight interstitial prominence the lung bases, likely secondary to a suboptimal inspiration.[ IMPRESSION: 1. Suspected hiatal hernia 2. No evidence of focal pulmonary consolidation Electronically signed by: Caleb Vann M.D. 08/01/2017 1:26 PM Dictated Date/Time: 08/01/2017 1:25 PM The status of this report is Signed. Draft = Not yet reviewed or approved by Radiologist. Signed = Reviewed and approved by Radiologist. Interpretation Summary * Name: SON SOSA Study Date: 08/02/2017 08:08 AM BP: 152/64 mmHg * Patient Location: [facility]\S\N280\S\1 HR: 78 * : 1940 (M/d/yyyy) Gender: Female Height: 64 in * Age: 76 yrs Ethnicity: PA Weight: 209 lb * Ordering Physician: Veronique Kramer * Referring Physician: Moe Pop * Performed By: Gabriela Carrizales RCS * * Reason For Study: Chest Pain * BSA: 2.0 m2 * -- Conclusions -- * Dobutamine Stress Echo: * 1. Negative Dobutamine stress echo for ischemia at 104 % MPHR. * 2. Negative Dobutamine ECG for ischemia at 104 % MPHR. * 3. Appropriate blood pressure response. * 4. No arrhythmia. * 5. No chest pain reported. * 6. Technically difficult study, enhanced with IV Definity. * Echo: * 1. Normal left ventricular size and systolic function. EF 65-70%. No regional wall motion abnormalities. No left ventricular hypertrophy. Type 1 diastolic dysfunction. * 2. Aortic valve sclerosis mild, without significant aortic valvular stenosis. * 3. There is mild mitral regurgitation. * 4. Normal estimated right ventricular systolic pressure; 24 mm Hg. Procedure Details * DOBUTAMINE ECHO, CPT#[id number] * ECHO COLOR FLOW, CPT #[id number] * ECHO DOPPLER, CPT #[id number] * A contrast injection of Definity was performed to improve assessment of LV function. * Contrast was injected into an intravenous site in the left arm. * One vial of Definity ultrasound contrast was diluted in normal saline to a total volume of 10 ml. A total of '2.5' ml of solution was administered during imaging. * Lot # [id number] of Definity utilized for procedure. * Expiration date . * The attending nurse who injected the contrast agent was Hank Larkin RN. Left Ventricle * The left ventricle is normal in size. * There is normal left ventricular wall thickness. * Left ventricular systolic function is normal. * The left ventricular ejection fraction increases normally with stress. The left ventricular end-systolic cavity size reduces post-stress (normal response). The left ventricular wall motion with stress is normal. * Resting wall motion: Normal. Stress wall motion: Appropriate increase in Left ventricular systolic function and decrease in cavity size. No stress induced segmental wall motion abnormalities. * No regional wall motion abnormalities noted. * During stress imaging, images were at times foreshortened and therefore apex was not well visualized. Right Ventricle * The right ventricle is normal in size and function. * The right ventricular systolic function is normal as assessed by tricuspid annular plane systolic excursion (TAPSE) (normal >1.5 cm). Atria * The left atrial size is normal. * Right atrial size is normal. * There is no evidence of atrial septal defect, but resolution does not allow assessment for a patent foramen ovale. Mitral Valve * There is mild mitral annular calcification. * There is no mitral valve stenosis. * There is mild mitral regurgitation. Tricuspid Valve * The tricuspid valve is not well visualized, but is grossly normal. * There is no tricuspid stenosis. * There is trace tricuspid regurgitation. Aortic Valve * The aortic valve is trileaflet. * Aortic valve sclerosis mild, without significant aortic valvular stenosis. * No hemodynamically significant valvular aortic stenosis. * No aortic regurgitation is present. Pulmonic Valve * The pulmonary valve is inadequately visualized, but the Doppler data is adequate for interpretation. * Trace pulmonic valvular regurgitation. Great Vessels * The aortic root is normal size. * Normal pulmonary venous flow pattern. Normal IVC size and inspiratory collapse. Pericardium * There is no pericardial effusion. Stress Parameters * NSR at 63 bpm. * Stress ECG: No ST changes. No arrhythmias. * No arrhythmia were noted with stress. * Rest heart rate was '78' BPM. * Rest blood pressure was '152/64' * Maximum heart rate achieved was 150 bpm. * Maximum heart rate was 104 % of maximum age-predicted heart rate. * Maximum blood pressure was '166/60' * Maximum Dobutamine infusion rate was '30' mcg/kg/min. * Dobutamine infusion was terminated due to achieving target heart rate * A total of 5 mg of IV Metoprolol was administered to reverse Dobutamine- induced tachycardia. * Normal blood pressure response to exercise. Left Ventricular Diastolic Function * Grade I diastolic dysfunction, (abnormal relaxation pattern). Medication Reconciliation New Medications: Cyclobenzaprine HCl (Cyclobenzaprine HCl) 5 Mg Tab 5 MG PO TID PRN for BACK PAIN for 5 Days, #15 TAB Continued Medications: Acetaminophen (Tylenol) 500 Mg Tab 500 MG PO Q8H PRN for RN Albuterol Hfa (Ventolin Hfa) 200 Puffs/65252 Mcg Aers 2-4 PUFFS INH Q6H PRN for SOB/Wheezing Amlodipine (Norvasc) 5 Mg Tab 5 MG PO QAM, TAB Calcium Carbonate (Calcium) 600 Mg Tab 1250 MG PO DAILY TOTAL DOSAGE 1250 Cholecalciferol (Vitamin D) 5,000 Unit Tab 5000 UNITS PO QPM Coenzyme Q10 (Ubidecarenone) (Coq10) 400 Mg Cap 400 MG PO QPM Cyanocobalamin (Vitamin B12) 1,000 Mcg Tab 2000 UNITS PO DAILY Ferrous Sulfate (Ferrous Sulfate) 325 Mg Tab 325 MG PO BID Flaxseed (Linseed) (Flax Seed Oil) 1 Cap Cap 1 CAP PO Q2D Fluticasone Propionate (Inhala (Flovent Diskus) 100 Mcg/Blist Aer 1 PUFFS INH BID PRN for Shortness of Breath Hydrochlorothiazide (Hydrochlorothiazide) 12.5 Mg Tab 12.5 MG PO DAILY Levothyroxine Sodium (Synthroid) 25 Mcg Tab 25 MCG PO QAM, TAB Melatonin (Kp Melatonin) 3 Mg Tab 1-2 TAB PO HS PRN for Sleep Mometasone Furoate (Nasal) (Mometasone Furoate) 50 Mcg/Act Spr 2 SPRAYS JOSSE DAILY PRN for CONGESTION Montelukast Sodium (Singulair) 10 Mg Tab 10 MG PO QPM Multivitamin (Multivitamin) Tab 1 TAB PO QPM, TAB Pantoprazole (Protonix) 40 Mg Tab 40 MG PO BID Potassium Chloride (K-Tab) 20 Meq Tab 20 MEQ PO BID Psyllium (Metamucil) 48.57 % Pow 1 DOSE PO QPM Red Yeast Rice Extract (Red Yeast Rice) 600 Mg Cap 600 MG PO QPM Valsartan (Valsartan) 80 Mg Tab 80 MG PO QAM Discharge Exam Mid- R-sided, just below R shoulder blade, ttp of back region Review of Systems: Constitutional: No fever, No chills, No sweats, No weakness, No fatigue Eyes: No worsening of vision ENT: No hearing loss Respiratory: No cough, No shortness of breath, No dyspnea on exertion, No hemoptysis Cardiovascular: No chest pain, No edema, No palpitations Abdomen: No pain, No nausea, No vomiting, No diarrhea, No constipation Musculoskeletal: + muscle pain, No joint pain, No swelling, No calf pain Genitourinary - Female: No dysuria, No hematuria Neurologic: No weakness, No numbness/tingling Psychiatric: No depression symptoms, No anxiety Endocrine: No fatigue Hematologic / Lymphatic: No abnormal bleeding/bruising Integumentary: No rash, No itch, No new/changing skin lesions Physical Exam: General Appearance: no apparent distress, + obese Eyes: normal inspection, PERRL ENT: hearing grossly normal Neck: supple Respiratory/Chest: lungs clear, no respiratory distress, no accessory muscle use Cardiovascular: regular rate, rhythm Abdomen / GI: normal bowel sounds, non tender, soft Extremities: no calf tenderness, no pedal edema Neurologic/Psychiatric: alert, oriented x 3 Skin: normal color, warm/dry, no rash Hospital Course Admission H&P: This is a 76 y/o female with a history of HTN, HLD, PAD, hypothyroidism, mild intermittent asthma, schizoaffective disorder, and GERD who presented to the ED on 08/01 with chest pain. The patient states she has had chronic back pain for the last several months, but in the last few days it has started to radiate to her chest. She describes a chest tightness as well as a pressure-like pain that she is unable to quantify. The patient states that the tightness sometimes radiates up to her neck and down both arms to her fingers. She also complains of dyspnea on exertion which has been getting worse over the last week , causing her to feel generally weak and fatigued. She admits to intermittent nausea and worsening dizziness, especially with activity. She sometimes has palpitations, but she saw Dr. Pop in April and wore a 24 hour event monitor which did not show any significant arrhythmias. The patient denies fevers, chills, sweats, claudication, cough, wheezing, vomiting, abdominal pain , dysuria, hematuria, urinary retention, paralysis, weakness, numbness and tingling. Physical Exam Vital Signs Date Time Temp Pulse Resp B/P (MAP) Pulse Ox O2 Delivery O2 Flow Rate FiO2 08/01/17 12:41 84 08/01/17 12:36 36.7 77 20 125/79 96 Room Air 08/01/17 12:36 95 Room Air General appearance: +Obese. Well-developed, well-nourished, no apparent distress Head: Normocephalic, atraumatic Eyes: Normal inspection, PERRL, EOMI ENT: Normal ENT inspection, hearing grossly normal, pharynx normal Neck: Supple, no JVD, trachea midline Respiratory/Chest: Lungs clear to auscultation, normal breath sounds, no respiratory distress Cardiovascular: Regular rate & rhythm, no gallop, no murmur Abdomen/GI: +Epigastrium mildly TTP. Normal bowel sounds, soft Extremities/Musculoskeletal: Normal inspection, no calf tenderness, no pedal edema Neurological/Psych: +Delusions. Pt states she just found out this summer that she was in fact at one time, but didn't know before hand due to her previous psych hospitalizations and resultant medications doping her up. She claims she was at one point to [facility]il[facility] [place]. Otherwise currently has normal mood and oriented x3. Alert, normal mood/affect, oriented x 3 Skin: Normal color, warm/dry, no rash Hospital Course: 76 y/o female with a history of HTN, HLD, PAD, hypothyroidism, mild intermittent asthma, schizoaffective disorder, and GERD who presented to the ED on 08/01 with chest pain. Pt had took ASA at home prior to EMS arrival. EMS gave nitro x 3 doses. Pt arrived to ED afebrile, VSS. CXR shows suspected hiatal hernia, otherwise no acute disease. EKG no ischemic changes. Cardiac enzymes and d-dimer negative, labs otherwise grossly unremarkable. Chest pain, likely secondary to musculoskeletal pain, ACS r/o: - Admit to telemetry for observation- no acute events - Trend cardiac enzymes q8h x 3- negative - Stress ECHO- unremarkable for ischemic findings - EKG q am and prn chest pain - HgbA1c- 5.9% - Flexeril 5 mg TID PRN for pain- symptoms improved w/ use Mild hypoK at 3.4: Continue K-tab 20 mEq BID HLD- INTOLERANT TO STATINS PER PATIENT: - Lipid panel reviewed - Encouraged weight loss, exercise, and healthy diet - Continue supplements HTN: Continue Norvasc 5 mg PO qd, HCTZ 12.5 mg PO qd and Valsartan 80 mg PO qd Hypothyroidism- TSH WNL: Continue Synthroid 25 mcg PO qd Mild intermittent asthma: Continue PRN albuterol inhaler, PRN Singulair, Claritin, Nasonex and Flovent Schizoaffective disorder: Consult psych, appreciate recommendations- patient refusing inpatient treatment/medications GERD: Continue Protonix 40 mg PO BID DVT prophylaxis: Enoxaparin 40 mg SC q24h Code Status: Level I, FULL RESUSCITATION STATUS Dispo: Discharge to home I agree with PA assessment and plan and have seen and examined pt myself Resting comfortably in bed No further chest pain Labs reviewed Psych consulted, no active intervention needed Stress test unremarkable Stable for DC home Total Time Spent: Greater than 30 minutes This includes examination of the patient, discharge planning, medication reconciliation, and communication with other providers. Discharge Instructions Please refer to the electronic Patient Visit Report (Discharge Instructions) for additional information. Follow-Up Please follow-up with your PCP within 5-7 days Please follow-up with Dr. Koch in 1-2 weeks Please follow-up/keep all of your subspecialty appointments Additional Copies To Cheryl Brasher M.D.
--- NOTE | 2017-08-02 14:11 | DOBUTAMINE ECHO ---
*NOTICE TO RECEIVING [employer] This information is strictly Confidential and protected under [place] law. [place] law prohibits you from making any further disclosure of this information unless further disclosure is expressly permitted by the written consent of the person to whom it pertains or is authorized by law. A general authorization for the release of medical or other information is not sufficient for this purpose. Hospital accepts no responsibility if the information is made available to any other person, INCLUDING THE PATIENT. Interpretation Summary * Name: SON SOSA Study Date: 08/02/2017 08:08 AM BP: 152/64 mmHg * Patient Location: [facility]\S\N280\S\1 HR: 78 * : 1940 (M/d/yyy) Gender: Female Height: 64 in * Age: 76 yrs Ethnicity: CA Weight: 209 lb * Ordering Physician: Veronique Kramer * Referring Physician: Moe Pop * Performed By: Gabriela Carrizales [facility] * * Reason For Study: Chest Pain * BSA: 2.0 m2 * -- Conclusions -- * Dobutamine Stress Echo: * 1. Negative Dobutamine stress echo for ischemia at 104 % MPHR. * 2. Negative Dobutamine ECG for ischemia at 104 % MPHR. * 3. Appropriate blood pressure response. * 4. No arrhythmia. * 5. No chest pain reported. * 6. Technically difficult study, enhanced with IV Definity. * Echo: * 1. Normal left ventricular size and systolic function. EF 65-70%. No regional wall motion abnormalities. No left ventricular hypertrophy. Type 1 diastolic dysfunction. * 2. Aortic valve sclerosis mild, without significant aortic valvular stenosis. * 3. There is mild mitral regurgitation. * 4. Normal estimated right ventricular systolic pressure; 24 mm Hg. Procedure Details * DOBUTAMINE ECHO, CPT#[id number] * ECHO COLOR FLOW, CPT #[id number] * ECHO DOPPLER, CPT #[id number] * A contrast injection of Definity was performed to improve assessment of LV function. * Contrast was injected into an intravenous site in the left arm. * One vial of Definity ultrasound contrast was diluted in normal saline to a total volume of 10 ml. A total of '2.5' ml of solution was administered during imaging. * Lot # [id number] of Definity utilized for procedure. * Expiration date . * The attending nurse who injected the contrast agent was Hank Larkin RN. Left Ventricle * The left ventricle is normal in size. * There is normal left ventricular wall thickness. * Left ventricular systolic function is normal. * The left ventricular ejection fraction increases normally with stress. The left ventricular end-systolic cavity size reduces post-stress (normal response). The left ventricular wall motion with stress is normal. * Resting wall motion: Normal. Stress wall motion: Appropriate increase in Left ventricular systolic function and decrease in cavity size. No stress induced segmental wall motion abnormalities. * No regional wall motion abnormalities noted. * During stress imaging, images were at times foreshortened and therefore apex was not well visualized. Right Ventricle * The right ventricle is normal in size and function. * The right ventricular systolic function is normal as assessed by tricuspid annular plane systolic excursion (TAPSE) (normal >1.5 cm). Atria * The left atrial size is normal. * Right atrial size is normal. * There is no evidence of atrial septal defect, but resolution does not allow assessment for a patent foramen ovale. Mitral Valve * There is mild mitral annular calcification. * There is no mitral valve stenosis. * There is mild mitral regurgitation. Tricuspid Valve * The tricuspid valve is not well visualized, but is grossly normal. * There is no tricuspid stenosis. * There is trace tricuspid regurgitation. Aortic Valve * The aortic valve is trileaflet. * Aortic valve sclerosis mild, without significant aortic valvular stenosis. * No hemodynamically significant valvular aortic stenosis. * No aortic regurgitation is present. Pulmonic Valve * The pulmonary valve is inadequately visualized, but the Doppler data is adequate for interpretation. * Trace pulmonic valvular regurgitation. Great Vessels * The aortic root is normal size. * Normal pulmonary venous flow pattern. Normal IVC size and inspiratory collapse. Pericardium * There is no pericardial effusion. Stress Parameters * NSR at 63 bpm. * Stress ECG: No ST changes. No arrhythmias. * No arrhythmia were noted with stress. * Rest heart rate was '78' BPM. * Rest blood pressure was '152/64' * Maximum heart rate achieved was 150 bpm. * Maximum heart rate was 104 % of maximum age-predicted heart rate. * Maximum blood pressure was '166/60' * Maximum Dobutamine infusion rate was '30' mcg/kg/min. * Dobutamine infusion was terminated due to achieving target heart rate * A total of 5 mg of IV Metoprolol was administered to reverse Dobutamine-induced tachycardia. * Normal blood pressure response to exercise. Left Ventricular Diastolic Function * Grade I diastolic dysfunction, (abnormal relaxation pattern). MMode 2D Measurements and Calculations IVSd 1.0 cm IVSs 1.3 cm LVIDd 3.6 cm LVIDs 2.3 cm LVPWd 0.98 cm LVPWs 1.2 cm IVS/LVPW 1.0 FS 37.8 % EDV(Teich) 56.0 ml ESV(Teich) 17.5 ml EF(Teich) 68.8 % EDV(cubed) 48.3 ml ESV(cubed) 11.7 ml EF(cubed) 75.9 % % IVS thick 22.4 % % LVPW thick 25.7 % LV mass(C)d 110.5 grams LV mass(C)dI 55.5 grams/m\S\2 LV mass(C)s 80.6 grams LV mass(C)sI 40.4 grams/m\S\2 SV(Teich) 38.5 ml SI(Teich) 19.3 ml/m\S\2 SV(cubed) 36.7 ml SI(cubed) 18.4 ml/m\S\2 Ao root diam 3.0 cm Ao root area 6.9 cm\S\2 ACS 1.3 cm LA dimension 3.5 cm asc Aorta Diam 2.9 cm LA/Ao 1.2 EDV(MOD-sp4) 111.4 ml ESV(MOD-sp4) 44.8 ml EF(MOD-sp4) 59.8 % EDV(MOD-sp2) 101.3 ml ESV(MOD-sp2) 43.6 ml EF(MOD-sp2) 57.0 % SV(MOD-sp4) 66.6 ml SI(MOD-sp4) 33.4 ml/m\S\2 SV(MOD-sp2) 57.7 ml SI(MOD-sp2) 29.0 ml/m\S\2 Doppler Measurements and Calculations MV E max valentina 86.6 cm/sec MV A max valentina 118.0 cm/sec MV E/A 0.73 MV P1/2t max valentina 102.9 cm/sec MV P1/2t 64.1 msec MVA(P1/2t) 3.4 cm\S\2 MV dec slope 469.9 cm/sec\S\2 MV dec time 0.26 sec Ao V2 max 132.1 cm/sec Ao max PG 7.0 mmHg Ao max PG (full) 0.76 mmHg LV V1 max PG 6.2 mmHg LV V1 max 124.7 cm/sec PA V2 max 77.0 cm/sec PA max PG 2.4 mmHg PI max valentina 98.4 cm/sec PI max PG 3.9 mmHg PI dec slope 95.1 cm/sec\S\2 PI P1/2t 302.9 msec TR max valentina 227.9 cm/sec RVSP(TR) 23.8 mmHg RAP systole 3.0 mmHg
[2017-08-02] MEDS: ENOXAPARIN 40 MG/0.4 ML SYR SC SCH (15:19)
== END 2017-08-02 17:47 | disposition home or self-care (01) ==
LOC: EDBD 12:31 → C.EDB 12:33 → C.MED 14:54 → ENRESERV 15:22
PROVIDERS: ADMIT Hospitalist; ATTEND Hospitalist
DX: R07.89 Other chest pain (principal); E78.5 Hyperlipidemia, unspecified; I10 Essential (primary) hypertension; E03.9 Hypothyroidism, unspecified; J44.9 Chronic obstructive pulmonary disease, unspecified; F25.9 Schizoaffective disorder, unspecified; K21.9 Gastro-esophageal reflux disease without esophagitis; E87.6 Hypokalemia; M54.9 Dorsalgia, unspecified; M17.11 Unilateral primary osteoarthritis, right knee; Z87.891 Personal history of nicotine dependence; Z83.3 Family history of diabetes mellitus; Z82.3 Family history of stroke; Z82.49 Family history of ischemic heart disease and other diseases of the circulatory system

== ENCOUNTER → 2017-08-10 | Day surgery (SDC) | payer OTHER ==
[2017-07-27 11:08] VITALS: Ht 162.6 cm; Wt 95.0 kg
[~2017-08-10] VITALS: Ht 162.6 cm; Wt 95.0 kg
[~2017-08-10] MED LIST changes: +CYAN100020 PO; +FLAX1CAP11 PO; +FLX5 PO; -GABA-113 PO; +IOPAMIDOL INJ 61% 15 ML VIAL ONE; +LIDOCAINE HCL 1% MPF 5 ML VIAL INJ ONE; +LIDOCAINE HCL 1% MPF 5 ML VIAL ONE; -LORA10CA2 PO; +PANT1TAB3 PO; -PANT1TAB48 PO; +SODIUM CHLORIDE 0.9% INJ 10 ML VIAL ONE; -TRAM-10 PO
--- NOTE | 2017-08-10 13:43 | History & Physical Bridge - SC ---
H&P Re-Evaluation Bridge Note: I have examined the patient, reviewed the History & Physical and in the interval since the performance of the History & Physical I have noted the following changes of clinical significance: Patient for a LESI at an ASA level of 2 No changes noted
[2017-08-10 14:16] VITALS: TEMP 36.9
--- NOTE | 2017-08-10 14:20 | Discharge Instructions ---
Discharge Instructions Date of Service Aug 10, 2017. Visit Reason for Visit: Lumbar Radiculopathy Discharge Discharge Diagnosis / Problem: Right leg pain Discharge Goals Goal(s): Decrease discomfort, Improve function Activity Recommendations Activity Limitations: resume your previous activity Anesthesia . Post Anesthesia Instructions: If you have had General Anesthesia or IV Sedation: * Do not drive today. * Resume driving when surgeon permits. * Do not make important decisions or sign legal documents today. * Call surgeon for: 1. Temperature elevations greater than 101 degrees F. 2. Uncontrollable pain. 3. Excessive bleeding. 4. Persistent nausea and vomiting. 5. Medication intolerance (nausea, vomiting or rash). * For nausea and vomiting use only clear liquids such as: tea, soda, bouillon until nausea subsides, then gradually increase diet as tolerated. * If you have any concerns or questions, call your surgeon's office. If physician is unavailable and it is an emergency, call 911 or go to the nearest emergency room. . Diet Recommendations Recommended Home Diet: no limitations Procedures Procedures Performed: Lumbar Epidural Steroid Injection via Caudal Approach Pending Studies Studies pending at discharge: no Medical Emergencies . Who to Call and When: Medical Emergencies: If at any time you feel your situation is an emergency, please call 911 immediately. . Non-Emergent Contact Non-Emergency issues call your: Specialist . . "Provider Documentation" section prepared by Anthony Koch. .
[2017-08-10 14:24] VITALS: BP 142/88; PULSE 89; O2SAT 97
--- NOTE | 2017-08-10 14:33 | OPERATIVE REPORT ---
DATE OF OPERATION: 08/10/2017 PREOPERATIVE DIAGNOSIS: Right L5 radiculopathy. POSTOPERATIVE DIAGNOSIS: Same. PROCEDURE: Caudal epidural steroid injection under fluoroscopic guidance. INDICATIONS: The patient is a 76-year-old white female that had an epidural injection a month or two ago and initially reported she felt she had no benefit from it. Later, she felt that she got about 30% improvement and wanted to do a second injection to stack the effects to help with radicular pain. She is also maintained on gabapentin that helped with L5 radiculopathy that was being shown on an EMG nerve conduction study. PHYSICAL EXAMINATION: Pleasant female seated comfortably in no apparent distress. She is without any focal weakness of her lower extremities. Negative seated straight leg raises. CONSENT: Verbal and written consent was obtained from the patient. Risks and benefits were reviewed. Risks include, but are not limited to epidural abscess and allergic reaction. The patient wishes to proceed. DESCRIPTION OF PROCEDURE: The patient was taken back into the special procedures room of the [facility], where she was maintained in a prone position. Backside was cleansed with Betadine x3 and a dry sterile dressing was applied. Fluoroscope was used to identify the sacral hiatus and the overlying skin was anesthetized with 4 mL of lidocaine 1% with a 25-gauge 1-1/2 inch needle. A 22-gauge 5-inch needle was then directed under lateral fluoroscopic guidance into the sacral canal without problems or difficulties and injected after negative aspiration of 40 mg of Depo-Medrol and 4 mL of preservative free sodium chloride. The intralaminar approach was attempted prior to the caudal approach, but it could not enter the interlaminar space, which was very tight and a decision was made to enter via the caudal approach. DISPOSITION: 1. The patient was taken out into the discharge recovery area, where she will be discharged home once discharge criteria have been met. 2. Follow up in the [facility] office in 2-4 weeks. I attest to the content of the Intraoperative Record and any orders documented therein. Any exception s are noted below.
== END | disposition home or self-care (01) ==
LOC: X.SURG 12:32
PROVIDERS: ATTEND Physical Medicine & Rehabilitation
DX: M54.16 Radiculopathy, lumbar region (principal); Z98.890 Other specified postprocedural states

== ENCOUNTER → 2017-11-16 | Outpatient (CLI) | payer OTHER ==
[~2017-11-16] MED LIST changes: -IOPAMIDOL INJ 61% 15 ML VIAL ONE; -LIDOCAINE HCL 1% MPF 5 ML VIAL INJ ONE; -LIDOCAINE HCL 1% MPF 5 ML VIAL ONE; -SODIUM CHLORIDE 0.9% INJ 10 ML VIAL ONE
== END | disposition home or self-care (01) ==
LOC: C.LAB1850 12:54
PROVIDERS: ATTEND Internal Medicine Rheumatology
DX: E55.9 Vitamin D deficiency, unspecified (principal); M81.0 Age-related osteoporosis without current pathological fracture; N25.81 Secondary hyperparathyroidism of renal origin